=== PATIENT | male | born 1985 | race African-American/Black ===

== ENCOUNTER 2016-05-03 18:37 | Emergency (ER) | payer OTHER ==
[~2016-05-03] VITALS: Ht 167.6 cm; Wt 97.5 kg
[2016-05-03 18:41] VITALS: BP 161/96
[2016-05-03] MEDS ORDERED: MOBIC7.5 MG PO (19:11)
[2016-05-03] MEDS ORDERED: NORFLEX100 MG PO (19:11)
== END 2016-05-03 19:55 | disposition home or self-care (01) ==
LOC: ER 18:37
DX: M26.621 Arthralgia of right temporomandibular joint (principal)

== ENCOUNTER 2020-10-23 06:09 | Emergency (ER) | payer OTHER ==
[~2020-10-23] VITALS: Ht 167.6 cm; Wt 90.3 kg
[~2020-10-23 06:09] MED LIST: MOBIC7.5 MG PO; NORFLEX100 MG PO
[2020-10-23 06:12] VITALS: BP 120/88
[2020-10-23] MEDS ORDERED: IBUPROFEN200 M1 PO (06:18)
[2020-10-23] MEDS ORDERED: AMOXICILLIN875 MG PO (06:51)
== END 2020-10-23 06:50 | disposition home or self-care (01) ==
LOC: ER 06:09
DX: J02.0 Streptococcal pharyngitis (principal); Z79.1 Long term (current) use of non-steroidal anti-inflammatories (NSAID); Z79.899 Other long term (current) drug therapy

== ENCOUNTER 2021-01-10 07:00 | Inpatient (IN) | payer OTHER ==
[~2021-01-10] VITALS: Ht 167.6 cm; Wt 87.3 kg
[2021-01-10 07:00] VITALS: BP 137/83
[~2021-01-10 07:00] MED LIST changes: +AMOXICILLIN875 MG PO; +IBUPROFEN200 M1 PO
[2021-01-10 08:50] LABS: ABSOLUTE NEUTROPHILS 10.8 thou/uL (1.4-8.2); BASOPHILS 0.2 % (0.0-2.0); EOSINOPHILS 0.3 % (0.0-3.0); HEMATOCRIT 43.7 % (42.0-52.0); HEMOGLOBIN 14.4 gm/dL (14.0-18.0); LYMPHOCYTES 14.4 % (24.0-44.0); MCH 31.4 pg (26.0-34.0); MCHC 32.9 g/dL (28.0-37.0); MCV 95.4 fL (80.0-100.0); MONOCYTES 9.5 % (1.0-8.0); PLATELET COUNT 399 thou/uL (150-400); POLYS 75.6 % (36.0-66.0); RBC 4.59 mil/uL (4.50-6.00); RDW 12.7 % (10.5-14.5); WBC 14.2 thou/uL (4.0-11.0)
[2021-01-10 08:56] LABS: CALCIUM 9.6 mg/dL (8.5-10.1); CREATININE 1.2 mg/dL (0.7-1.3); POTASSIUM 3.4 mmol/L (3.5-5.1)
[2021-01-10 09:03] LABS: ALBUMIN 3.6 g/dL (3.4-5.0); DIRECT BILIRUBIN 0.5 mg/dL (<0.1-0.2); TOTAL BILIRUBIN 1.5 mg/dL (0.2-1.0); TOTAL PROTEIN 9.3 g/dL (6.4-8.2)
[2021-01-10 11:00] VITALS: BP 122/68
[2021-01-10 15:01] VITALS: BP 122/68
[2021-01-10 15:48] VITALS: BP 134/73
--- NOTE | 2021-01-10 16:42 | NUR ---
Pt arrived to room 449 from ED. Pt is A & O x4. Pt is indepedent with cares and gait is steady and is up ad ryder. pt VS stable. pt received PRN pain medications for ABD pain noted, see JUN. Pt currently is NPO. Pt stated he wants to eat and drink, call put out to MD. Pt is able to make needs known.
[2021-01-10 19:25] VITALS: BP 134/65
--- NOTE | 2021-01-11 06:16 | NUR ---
Assumed pt care at 1900.A/OX4,VSS.C/o abd pain, no N/V medicated per EMAR with relief reported. Up ad ryder,prefers to void per urinal at [facility]. New IV inserted on LAC for need of 2 PIVs LR/Zosyn,fluids infusing w/o problems. Pt remains NPO for bowel rest,meds given with a sip of water.
[2021-01-11 07:31] VITALS: BP 130/69
[2021-01-11 08:50] LABS: HEMATOCRIT 37.2 % (42.0-52.0); MCH 31.8 pg (26.0-34.0); MCHC 33.2 g/dL (28.0-37.0); MCV 95.7 fL (80.0-100.0); RBC 3.89 mil/uL (4.50-6.00); RDW 12.5 % (10.5-14.5); WBC 9.7 thou/uL (4.0-11.0)
[2021-01-11 09:03] LABS: ALBUMIN 2.8 g/dL (3.4-5.0); CALCIUM 8.9 mg/dL (8.5-10.1); PHOSPHORUS 3.9 mg/dL (2.6-4.7)
[2021-01-11 09:04] LABS: POTASSIUM 3.7 mmol/L (3.5-5.1)
[2021-01-11 09:16] LABS: HEMOGLOBIN 12.3 gm/dL (14.0-18.0)
--- NOTE | 2021-01-11 17:27 | NUR ---
Pt A & O x4. Pt started on clear liq diet this shift. no BM this shift. Pt is independent and is up ad ryder. pt received medications as ordered and received PRN medications as requested by pt. pt is room air. pt is able to make needs known.
[2021-01-11 19:40] VITALS: BP 138/77
--- NOTE | 2021-01-12 04:22 | NUR ---
Ot A/OX4,VSS.C/o abd pain on and off at NOC,medicated per EMAR with relief reported. Denies N/V. Pt encouraged to ambulate on hallway but declined,only did in room and verbalized feeling a little better,passing flatus. Continues on clear liquids,no BM yet. Resting w/o any distress noted,will continue to monitor pt.
[2021-01-12 08:37] VITALS: BP 143/85
--- NOTE | 2021-01-12 13:06 | NUR ---
CARE ASSSUMED THIS AM, PT ALERT AND ORIENTED X4, DENIES ANY PAIN, NAUSEA AND VOMITTING. CONTINUE TO HAVE ABDOMINAL PAIN, PAIN MED GIVEN PER ORDER. DIET ADVANCE TO RUGULAR, PT TOLERATED LUNCH BETTER. USES URINAL AND INDEPENDENT TO THE BATHROOM. CALL LIGHT AND TABLE WITHIN REACH. DENIES ANY NEED ROBBY.
[2021-01-12 15:28] VITALS: BP 133/72
[2021-01-12 19:30] VITALS: BP 142/75
--- NOTE | 2021-01-13 04:01 | NUR ---
Pt. rested quietly at intervals during the night when checked on during frequent rounds. He c/o abdominal pain and pain meds given (see emar) with some relief noted. No c/o nausea.
[2021-01-13 07:30] VITALS: BP 135/71
[2021-01-13 07:40] LABS: HEMATOCRIT 34.3 % (42.0-52.0); HEMOGLOBIN 11.5 gm/dL (14.0-18.0); MCH 31.6 pg (26.0-34.0); MCHC 33.6 g/dL (28.0-37.0); MCV 94.2 fL (80.0-100.0); RBC 3.64 mil/uL (4.50-6.00); RDW 12.7 % (10.5-14.5); WBC 10.7 thou/uL (4.0-11.0)
[2021-01-13 07:51] LABS: ALBUMIN 2.5 g/dL (3.4-5.0); CALCIUM 8.5 mg/dL (8.5-10.1); CREATININE 0.9 mg/dL (0.7-1.3)
[2021-01-13 12:00] VITALS: BP 139/72
[2021-01-13 16:00] VITALS: BP 177/81
--- NOTE | 2021-01-13 16:08 | NUR ---
PT ADMITTED RELATED TO PERFORATED DIVERTICULITIS. CM REVIEWED CHART AND SPOKE WITH CARE TEAM. CM VISITED WITH PT AND HE INDICATED THAT HE RESIDES IN AN APARTMENT WITH HIS KIDS AND GF. PT INDICATED HE PLANS TO RETURN HOME ONCE MEDICALLY STABLE. CARE TEAM INDICATED THAT THEY WERE MANAGING PT CONSERVATIVELY AND TREATING WITH IV ABX. THEY INDICATED THAT PT IS RESPONDING TO TREATMENT AND DIET HAD BEEN ADVANCED. THIS AM NURSE INDICATED THAT PT WANTED TRANSFERED HE WANTED SURGERY. CM NET WITH PT AND HE INDICATED THAT HE WAS UPSET ABOUT HOW NURSE RESPONED TO HIS REQUEST FOR PAIN MEDS THIS AND THAT HE DIDN'T WANT TO TRANSFER HE JUST WANTED HIS CONTINUEIGN PAIN AND DISCOMFORT ADDRESSED AND REMIDIED. HE STATED NO ISSUE WITH CURRENT NURSE AND THAT HE HAD GOTTEN PAIN MEDS SINCE. LOOKED LIKE PT IS TO HAVE REPEAT CT THIS DAY. CARE TEAM INDICATED THAT DEPENDING ON RESULTS AND MANAGEMENT OF PAIN AND DISCOMFORT PT MAY BE MEDICALLY STABLE TO DC THIS WEEKED. LIKELY NO NEEDS UPON DC. FOLLOWING SHOULD ANY NEEDS ARISE.
--- NOTE | 2021-01-13 18:22 | NUR ---
Assumed pt care at 7am.Pt in bed very frustrated and wanted to dc to another hospital if no surgery this admission.Rn reassured pt that Surgeon and cm will be notify. Assessment completed.vss but elevated temp noted. Tylenol po offered but refused by pt.Received call from Dr Henderson,no new order noted but later came to talk to pt. Later this afternoon ct order noted. Pt drank contrast prior to go for ct abd/pelvis.Dilaudid ivp given as ordered x2 with relief.Pt will be npo after mn as ordered. Tylenol given this evening for elevated temp.Will continue to monitor.
[2021-01-13 21:05] VITALS: BP 145/73
--- NOTE | 2021-01-14 03:34 | NUR ---
Pt. rested quietly at intervals during the night when checked on during frequent rounds. Po scheduled tylenol given for pain (see emar) with some relief noted. Pt. reports getting up to the bathroom and having some loose stools. C/o a little nausea, but no emesis.
[2021-01-14 08:35] VITALS: BP 147/76
--- NOTE | 2021-01-14 09:09 | NUR ---
ASSUMED PT CARE THIS AM. PT IS ALERT & ORIENTED X4. PT HAS IV SITE ON RAC RUNNING LR @125ML/HR. PT IS ON ROOM AIR. LAST BM WAS TODAY. PT RATED PAIN 2/10 ON ABDOMEN. PT IS UP AD TRELL. PT TOLERATED CLEAR LIQUID DIET. WILL CONTINUE TO MONITOR PT. FOLLOW POC.
[2021-01-14 15:32] VITALS: BP 168/75
[2021-01-14 16:49] VITALS: BP 152/88
[2021-01-14 20:21] VITALS: BP 163/69
[2021-01-15 01:19] VITALS: BP 155/77
--- NOTE | 2021-01-15 02:10 | NUR ---
PT CARE ASSUMED WITH PT IN BED SLEEPING.PT IS A/O X4.PT IS ON CLEAR LIQUID DIET AND TOLERATING IT WELL.PT C/O PAIN AND PAIN MANAGED WITH DILAUDID WITH RELIEF.IV ACCESS ON RAC WITH LR AT 125CC/HR.PT IS ON ROOM AIR.WILL CONTINUE TO MONITOR PER POC
[2021-01-15 07:44] VITALS: BP 155/76
--- NOTE | 2021-01-15 09:59 | NUR ---
ASSUMED PT CARE THIS AM. PT A&OX4, ABLE TO MAKE NEEDS KNOWN. PATIENT REPORTING NO PAIN, NUMBNESS, OR TINGLING. PATIENT REPORTS CONCERNS ABOUT WHY HE IS NOT HAVING SURGERY AND WHY HE IS STILL AT THE HOSPITAL. PHYSICIAN IN ROOM AT THIS TIME AND ANSWERED QUESTIONS THAT THIS PATIENT HAD. PATIENT REPORTS UNDERSTANDING AT THIS TIME. IV REMAINS PATENT. CALL LIGHT IS WITHIN REACH, PATIENT IS UP AD TRELL AND REMAINS CONTINENT.
[2021-01-15 15:54] VITALS: BP 149/83
[2021-01-15 19:22] VITALS: BP 145/68
--- NOTE | 2021-01-16 01:56 | NUR ---
PT CARE ASSUMED WITH PT IN BED WATCHING TV.PT IS A/O X4.PT IS ON ROOM AIR.PT PAIN RATE 2/10 AND REFUSED MIDNIGHT SCHEDULED TYLENOL FOR PAIN MANAGEMENT.PT IS ON ROOM AIR.PT DENIED NAUSEA AND VOMITING.IV ACCESS IN RT AC SL.WILL CONTINUE TO MONITOR PER POC
[2021-01-16 05:52] VITALS: BP 140/65
[2021-01-16 07:29] VITALS: BP 143/91
[2021-01-16] MEDS ORDERED: AUGMENTIN 875-1 EACH PO (14:15)
[2021-01-16] MEDS ORDERED: COLACE 100 MG100 MG PO (14:15)
[2021-01-16] MEDS ORDERED: NORCO5 PO (14:16)
[2021-01-16 14:34] VITALS: BP 143/91
--- NOTE | 2021-01-16 15:06 | NUR ---
Assumed pt care at 7am. Pt up in chair watching tv. Assessment completed.vss. Pt wanted to dc home today after seen by doctor.Am meds given with breakfast and well tolerated.Dr Henderson here later this afternoon and dc or jeffry noted. Dc summary compile and reviewed with pt .Rx sent to pt pharmacy. Ivf and saline lock dc'd. At 1510,pt dc home ambulatory.
== END 2021-01-16 15:30 | disposition home or self-care (01) | DRG 392 ==
LOC: ER 07:00 → EROBS 08:12 → 4W 14:45
PROVIDERS: Student in an Organized Health Care Education/Training Program; Surgery; ADMIT Surgery; ATTEND Surgery
DX: K57.20 Diverticulitis of large intestine with perforation and abscess without bleeding (principal); F17.210 Nicotine dependence, cigarettes, uncomplicated; Z20.822 Contact with and (suspected) exposure to COVID-19; Z28.21 Immunization not carried out because of patient refusal
CPT/HCPCS: 10047